=== PATIENT | female | born 1960 | race Two or more races ===

== ENCOUNTER → 2025-03-03 | Day surgery (SDC) | payer MEDICAID ==
[2025-03-01 09:44] LABS: Hematocrit 41.6 % (36.0-46.0); Hemoglobin 14.4 g/dL (12.2-16.2); Mean Corpuscular Hemoglobin 31.8 pg (28.0-32.0); Mean Corpuscular Volume 91.9 fL (80.0-100.0); Nucleated Red Blood Cells % 0.2 %
[2025-03-01 09:57] LABS: INR 1.0 (0.9-1.15); Partial Thromboplastin Time 27.1 SEC (24.5-34.5); Prothrombin Time 10.6 sec (9.3-11.8)
[2025-03-01 10:19] LABS: Alanine Aminotransferase 24 U/L (7-40); Albumin 4.6 g/dL (3.2-4.8); Alkaline Phosphatase 81 U/L (46-116); Anion Gap 8 (5-15); BUN/Creatinine Ratio 16.9 (10.0-20.0); Blood Urea Nitrogen 13 mg/dL (9-23); Calcium 10.3 mg/dL (8.7-10.4); Carbon Dioxide 27 mmol/L (20-31); Chloride 106 mmol/L (98-107); Glucose 94 mg/dL (74-106); Potassium 4.2 mmol/L (3.5-5.1); Sodium 141 mmol/L (136-145); Total Protein 7.0 g/dL (5.7-8.2)
[2025-03-01 10:21] LABS: Bilirubin, Total 1.3 mg/dL (0.2-1.0)
[2025-03-03] MEDS: fentaNYL CITRATE 100 MCG/2 ML VL ONE (11:46)
[2025-03-03] MEDS: MIDAZOLAM HCL 2MG/2ML 2ml VIAL (1mg/ml) ONE (11:46)
[2025-03-03 12:03] VITALS: PULSE 54; RESP 12; TEMP 97.9; O2SAT 100
--- NOTE | 2025-03-03 12:03 | DVHNC2 ---
Procedure - PROCEDURE DAY MARCH 03, 2025 PERFORMED BY: DR. RUSH REFERRING PROVIDER:DR CLARK PROCEDURE PERFORMED: 1. ESOPHAGOGASTRODUODENOSCOPY WITH MODERATE SEDATION 2. ESOPHAGOGASTRODUODENOSCOPY WITH BIOPSY PREPROCEDURE DIAGNOSIS: 1. GERD REFRACTORY TO TREATMENT 2. NAUSEA 3. EPIGASTRIC ABDOMINAL PAIN 4. FAMILY HISTORY OF STOMACH CANCER POSTPROCEDURE DIAGNOSIS: 1. MILD GASTRITIS 2. EROSIVE ESOPHAGITIS 3. SPASM GE JUNCTION 4. SMALL HIATAL HERNIA MEDICATIONS USED;5MG OF VERSED AND 100 MCG OF FENTANYL IV INDICATIONS FOR PROCEDURE: THE PATIENT IS A 65-YEAR-OLD FEMALE PRESENTS FOR O UTPATIENT ENDOSCOPY FOR NAUSEA, GERD REFRACTORY BETWEEN IN A FAMILY HISTORY STOMACH CANCER DETAILS OF THE PROCEDURE: INFORMED CONSENT WAS OBTAINED AFTER RISKS BENEFITS AND ALTERNATIVES WERE DISCUSSED AT LENGTH WITH THE PATIENT. THE PATIENT GAVE CONSENT TO THE PROCEDURES WELL A MEDICATION USED FOR SEDATION. PATIENT WAS PLACED IN THE LEFT LATERAL DECUBITUS POSITION. AN OLYMPUS ENDOSCOPE WAS INSERTED INTO THE ORAL PHARYNX AND ADVANCED INTO THE ESOPHAGUS THEN INTO THE STOMACH, THEN INTO THE DUODENAL BULB AND DUODENAL. THE DUODENAL BULB AND DUODENUM WERE NORMAL THE ENDOSCOPE WAS THEN WITHDRAWN. THE STOMACH SHOWED MILD GASTRITIS BIOPSIES WERE TAKEN RETROFLEXION SHOWED SMALL HIATAL HERNIA.. THE SCOPE WAS THEN WITHDRAWN. PATIENT HAD MILD EROSIVE ESOPHAGITIS IN SIGNIFICANT SPASM. BIOPSIES WERE TAKEN OF THE GE JUNCTION TO RULE OUT DYSPLASIA.. THE PATIENT TOLERATED THE PROCEDURE WELL. IMPRESSION: 1. MILD EROSIVE ESOPHAGITIS AND MILD EROSIVE GASTRITIS 2. SMALL HIATAL HERNIA 3. BIOPSIES TAKEN OF THE GE JUNCTION 4. SIGNIFICANT SPASM AT THE GE JUNCTION RECOMMENDATIONS: 1. FOLLOW UP WITH PRIMARY CARE PHYSICIAN 2. ANTI-REFLUX PRECAUTIONS 3. FOLLOW UP IN GI CLINIC FOR PROCEDURE RESULTS AND PATHOLOGY RESULTS 4. CONSIDER FURTHER WORKUP WITH IMAGING OF THE GE JUNCTION WITH CT SCAN AND POSSIBLE MOTILITY STUDY I WOULD LIKE TO THANK DR. CLARK FOR THE REFERRAL LEON RUSH MD Mar 03, 2025 12:03
[2025-03-03 12:53] VITALS: BP 122/61; PULSE 53; RESP 13; O2SAT 100
== END | disposition home or self-care (01) ==
LOC: GI 10:20
PROVIDERS: ATTEND Specialist
DX: K21.00 Gastro-esophageal reflux disease with esophagitis, without bleeding (principal); K29.50 Unspecified chronic gastritis without bleeding; K22.10 Ulcer of esophagus without bleeding; K44.9 Diaphragmatic hernia without obstruction or gangrene; K31.89 Other diseases of stomach and duodenum; R11.0 Nausea; Z90.710 Acquired absence of both cervix and uterus; Z98.890 Other specified postprocedural states; Z88.0 Allergy status to penicillin; Z80.0 Family history of malignant neoplasm of digestive organs
CPT/HCPCS: 36415; 43239; 80053; 85025; 85610; 85730; 88305; 88342; J2250; J3010; 99152

== ENCOUNTER 2025-04-28 19:27 | Emergency (ER) | payer MEDICAID, OTHER ==
[~2025-04-28] VITALS: Ht 167.6 cm; Wt 77.2 kg
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
[2025-04-28] MEDS: KETOROLAC TROMETH 60MG/2ML VIAL IM ONE (22:09)
[2025-04-28 22:12] VITALS: BP 112/69; PULSE 57; RESP 19; TEMP 98.3
[2025-04-28 22:16] VITALS: O2SAT 98
[2025-04-28] MEDS ORDERED: IBUP1TAB5 PO (23:52)
[2025-04-28] MEDS ORDERED: ACET500T58 PO (23:52)
== END 2025-04-29 00:19 | disposition home or self-care (01) ==
LOC: ER 19:29
DX: S16.1XXA Strain of muscle, fascia and tendon at neck level, initial encounter (principal); Z88.0 Allergy status to penicillin; V43.62XA Car passenger injured in collision with other type car in traffic accident, initial encounter; Y92.410 Unspecified street and highway as the place of occurrence of the external cause; Y93.89 Activity, other specified; Y99.8 Other external cause status
CPT/HCPCS: 72040; 96372; 99283; J1885